=== PATIENT | female | born 1990 | race Caucasian/White ===

== ENCOUNTER 2022-07-14 13:59 | Emergency (ER) | payer BC, SELFPAY ==
[2022-07-14 14:50] VITALS: BP 125/70; PULSE 88; RESP 16; TEMP 36.8; O2SAT 99
--- NOTE | 2022-07-14 15:03 | ED.GENADULT ---
HPI - General Adult General Chief complaint: Upper Respiratory Infection Stated complaint: sorethroat,congestion History of Present Illness HPI narrative: 32 y/o female. PMHx: None reported. Presents to [facility] today with acute complaints of body aches, chills, fever, nasal congestion, & sore throat for the past few days. Multiple other family members and children at home, ill with similar issues. Fever at home, no BANERJEE, focal weakness, neck stiffness, seizure activity. Denies chest pain, palpitations, dyspnea, wheezing. No GI upset, N/V/D Related Data Allergies Allergy/AdvReac Type Severity Reaction Status Date / Time No Known Allergies Allergy Verified 07/14/22 15:29 Review of Systems Review of Systems: CONSTITUTIONAL: Positive body aches, fever, chills. No sweats. EYES: Denies visual changes, redness, discharge. ENT: Positive rhinorrhea, congestion, sore throat. No otalgia. CARDIOVASCULAR: Denies chest pain, palpitations, edema. RESPIRATORY: Denies dyspnea, wheezing, cough GASTROINTESTINAL: Denies abdominal pain, nausea, vomiting, diarrhea. All other systems have been reviewed: Unless noted remaining ROS Negative. Exam Narrative: GENERAL: Well-appearing, well-nourished adult, and in no acute distress. HEAD: Normocephalic, atraumatic. EYES: PERRLA, conjunctivae clear. ENT: Positive rhinorrhea, no obstruction. Mucous membranes moist. Positive PND. Posterior pharynx is erythematous, without swelling or exudative changes, Uvula midline. Palate soft. NECK: Supple. No lymphadenopathy. No meningeal signs. CHEST: Clear to auscultation. No wheezing, rales, rhonchi.? HEART: Regular rate and rhythm. ABDOMEN: Soft, non-tender, non-distended. BS present X 4. No signs of acute abdomen. SKIN: Warm, dry, intact. No rashes, no lesions. NEURO:? Alert and age appropriate. Course Course Level of Care: Express Care Visit Vital Signs Vital signs: Vital Signs Temperature 36.8 C 07/14/22 14:50 Pulse Rate 88 07/14/22 14:50 Respiratory Rate 16 07/14/22 14:50 Blood Pressure 125/70 07/14/22 14:50 Pulse Oximetry 99 07/14/22 14:50 Temperature 36.8 C 07/14/22 14:50 Pulse Rate 88 07/14/22 14:50 Respiratory Rate 16 07/14/22 14:50 Blood Pressure 125/70 07/14/22 14:50 Pulse Oximetry 99 07/14/22 14:50 Medical Decision Making MDM Narrative Medical decision making narrative: -Covid: Negative. -Influenza: Negative. -Rapid Strep: Negative. However, will treat based upon PE, and + 1 child positive Strep in clinic today. -Will send for additional CX analysis. May DC ATB w/negative CX. -Advise resumption of OTC remedies prn for symptomatic reliefs. -PCP F/U 1WK. -ER W/Emergent status changes. Differential Diagnosis Differential Diagnosis: Differential Diagnosis: Consideration of the following conditions may be warranted for the presenting problem, they are not final diagnoses: upper respiratory infection, otitis media, sinusitis, RSV viral infection, PNA, bronchitis, pharyngitis, Streptococcal sore throat, COVID-19, Influenza, and other. Vital Signs Vital Signs: Vital Signs Temperature 36.8 C 07/14/22 14:50 Pulse Rate 88 07/14/22 14:50 Respiratory Rate 16 07/14/22 14:50 Blood Pressure 125/70 07/14/22 14:50 Pulse Oximetry 99 07/14/22 14:50 Temperature 36.8 C 07/14/22 14:50 Pulse Rate 88 07/14/22 14:50 Respiratory Rate 16 07/14/22 14:50 Blood Pressure 125/70 07/14/22 14:50 Pulse Oximetry 99 07/14/22 14:50 Lab Data Labs: Influenza A Screen Negative Reference Range: Negative Influenza B Screen Negative Reference Range: Negative Strep Screen Presumptive Negative *(Reference Range: Negative)* Discharge Plan Discharge Clinical Impression:
== END 2022-07-14 16:19 | disposition home or self-care (01) ==
PROVIDERS: Emergency Provider Nurse Practitioner Adult Health
DX: J02.0 Streptococcal pharyngitis (principal); Z20.822 Contact with and (suspected) exposure to COVID-19
CPT/HCPCS: 87081; 87426; 87804; 87880; 99213; C9803; G0463

== ENCOUNTER 2022-08-21 08:41 | Emergency (ER) | payer BC, SELFPAY ==
--- NOTE | 2022-08-21 08:54 | ED.GENADULT ---
HPI - General Adult General Chief complaint: Upper Respiratory Infection Stated complaint: sorethroat Time Seen by Provider: 08/21/22 08:54 Source: patient Mode of arrival: ambulatory Limitations: no limitations History of Present Illness HPI narrative: 32-year-old female patient presents to the [facility] with complaints of sore throat, fevers, chills and body aches with nausea and headaches for the past 2-3 days. Patient states she did look in her throat and states that looks nasty . Patient is fully vaccinated for COVID and influenza. Related Data Allergies Allergy/AdvReac Type Severity Reaction Status Date / Time No Known Allergies Allergy Verified 07/14/22 15:29 Review of Systems Review of Systems: CONSTITUTIONAL: positive fever, chills, or sweats. EYES: Denies visual changes, redness, or discharge. ENT: Denies rhinorrhea, congestion, Positive sore throat, denies otalgia. CARDIOVASCULAR: Denies chest pain, palpitations, or edema. RESPIRATORY: Denies cough or dyspnea. GASTROINTESTINAL: Denies abdominal pain, nausea, vomiting, or diarrhea. GENITOURINARY: Denies dysuria or hematuria. SKIN: Denies rash or itching. MUSCULOSKELETAL: Denies back pain, joint pain, or myalgia. NEUROLOGIC: positive headache, numbness, or weakness. PSYCHIATRIC: Denies anxiety or depression. [facility] Past Medical History Medical History (Updated 08/21/22 @ 09:42 by BETTY Bedoya) No significant past medical history Comments At the time of my signature I agree with nursing past medical history, surgical, social, and family history. There is no relevant family history pertinent to the presenting complaint. Exam Narrative: GENERAL: Well-appearing, well-nourished, and in no acute distress. HEAD: Normocephalic, atraumatic. EYES: PERRLA and EOMI. ENT: Nares clear, no rhinorrhea or epistaxis. Mucous membranes moist. posterior pharynx with erythema, 2+ tonsil enlargement and large white exudates noted on bilateral sides. NECK: Supple. No lymphadenopathy CHEST: Clear to auscultation. No respiratory distress. HEART: Regular rate and rhythm. No murmur heard. Normal peripheral pulses. ABDOMEN: Soft, nontender, nondistended, normal active bowel sounds. EXTREMITIES: Normal range of motion. No edema. SKIN: Warm, dry, no rash. NEURO: No focal deficits. Alert and oriented x3. Course Course Level of Care: Express Care Visit Vital Signs Vital signs: Vital Signs Temperature 36.7 C 08/21/22 09:20 Pulse Rate 96 08/21/22 09:20 Respiratory Rate 18 08/21/22 09:20 Blood Pressure 123/67 08/21/22 09:20 Pulse Oximetry 100 08/21/22 09:20 Oxygen Delivery Room Air 08/21/22 09:20 Temperature 36.7 C 08/21/22 09:20 Pulse Rate 96 08/21/22 09:20 Respiratory Rate 18 08/21/22 09:20 Blood Pressure 123/67 08/21/22 09:20 Pulse Oximetry 100 08/21/22 09:20 Oxygen Delivery Room Air 08/21/22 09:20 Vital signs reviewed Medical Decision Making MDM Narrative Medical decision making narrative: Plan care for patient is discharge home with oral antibiotics for suspected strep throat. Patient is aware of plan of care denies any other questions or concerns at this time. Differential Diagnosis Differential Diagnosis: differential diagnosis: Viral pharyngitis, pharyngitis, group A strep, infectious mononucleosis, gonococcal pharyngitis, exudative pharyngitis, oral candidiasis. Chronic allergies, postnasal drip, GERD, abscess formation, but glottitis, retropharyngeal abscess formation, or airway obstruction. Vital Signs Vital Signs: Vital Signs Temperature 36.7 C 08/21/22 09:20 Pulse Rate 96 08/21/22 09:20 Respiratory Rate 18 08/21/22 09:20 Blood Pressure 123/67 08/21/22 09:20 Pulse Oximetry 100 08/21/22 09:20 Oxygen Delivery Room Air 08/21/22 09:20 Temperature 36.7 C 08/21/22 09:20 Pulse Rate 96 08/21/22 09:20 Respiratory Rate 18 08/21/22 09:20 Blood Pressure 123/67 08/21/22
[2022-08-21 09:20] VITALS: BP 123/67; PULSE 96; RESP 18; TEMP 36.7; O2SAT 100
== END 2022-08-21 09:41 | disposition home or self-care (01) ==
PROVIDERS: Emergency Provider Nurse Practitioner Family
DX: J02.9 Acute pharyngitis, unspecified (principal)
CPT/HCPCS: 99213; G0463